=== PATIENT | male | born 1960 | race Two or more races ===

== ENCOUNTER 2025-03-03 02:25 | Emergency (ER) | payer BC, OTHER ==
[~2025-03-03] VITALS: Ht 162.6 cm; Wt 113.7 kg
[2025-03-03 02:35] VITALS: BP 186/104; PULSE 83; RESP 12; TEMP 98.8; O2SAT 95
[2025-03-03 03:51] LABS: Alanine Aminotransferase 28 U/L (7-40); Alkaline Phosphatase 76 U/L (46-116); Anion Gap 12 (5-15); BUN/Creatinine Ratio 12.9 (10.0-20.0); Bilirubin, Total 0.9 mg/dL (0.2-1.0); Blood Urea Nitrogen 12 mg/dL (9-23); Calcium 10.1 mg/dL (8.7-10.4); Carbon Dioxide 26 mmol/L (20-31); Chloride 102 mmol/L (98-107); Lipase 46 U/L (12-53); Potassium 4.5 mmol/L (3.5-5.1); Sodium 140 mmol/L (136-145); Total Protein 7.9 g/dL (5.7-8.2)
[2025-03-03] MEDS ORDERED: LIDOCAINE VISCOUS 2% 15ML UD PO ONE (04:00)
[2025-03-03] MEDS ORDERED: MAALOX PLUS or MAALOX 30 ML PO ONE (04:00)
[2025-03-03 04:14] LABS: Albumin 5.3 g/dL (3.2-4.8); Glucose 152 mg/dL (74-106)
--- NOTE | 2025-03-03 04:31 | DVH ---
Exam: CT CT AB PEL WO CON-NO ORAL OR IV History: Epigastric abdominal pain, nausea, vomiting Comparison Study: None Technique: Multidetector spiral CT of the abdomen was performed from lung bases to pubic symphysis. I maging was performed without IV contrast. Axial, coronal and sagittal multiplanar reformats were obta ined from the axial data set by the technologist. Radiation Dose : 1. Abdomen/Pelvis: CTDIvol 27.32 mGy, DLP 1638.9 mGy*cm. Findings: Evaluation of solid organs is limited due to lack of intravenous contrast use. Lung Bases: Partially calcified pleural-based 8 mm posterior medial left lower lobe pulmonary nodule ( series 2, image 20). Otherwise, no acute or significant lung base finding. Normal heart size. No p leural or pericardial effusion. Liver: The liver is enlarged, measuring 22.4 cm in craniocaudal dimension. No focal lesions. Benign- appearing hypoattenuating cystic lesion within the anterior right hepatic lobe measures 11 mm. Gallbladder and Biliary Tree: Unremarkable Spleen: Unremarkable Pancreas: The pancreas is grossly normal in appearance. Adrenal Glands: Unremarkable Kidneys: Kidneys are grossly normal without calculi or hydronephrosis. Bladder: Grossly unremarkable for degree of distention. Bowel: The stomach is grossly normal in appearance. Colonic diverticula within the proximal sigmoid c olon with mild adjacent inflammatory change and trace free fluid, may represent early sequelae of acu te diverticulitis. Mildly dilated fluid and gas-filled segments of small bowel throughout the abdomen with some scattered air-fluid levels and a maximum luminal diameter of 3.7 cm. No identifiable obstr uctive etiology. The appendix is normal. Lymphadenopathy: No mesenteric, retroperitoneal or periportal lymphadenopathy. Abdominal Wall and Mesentery: Small fat containing umbilical hernia. Vasculature: The visualized abdominal aorta is normal in size and caliber. Evaluation of abdominal a nd pelvic vessels is limited due to lack of intravenous contrast. Pelvic Organs: The prostate is moderately enlarged, measuring 5.2 cm transverse. Musculoskeletal: No aggressive focal bony lesions, acute fractures or dislocation. IMPRESSION: 1. Mildly dilated fluid and gas-filled segments of small bowel measuring up to 3.7 cm in diameter wit h scattered air-fluid levels. No identifiable obstructive etiology. 2. Proximal sigmoid colonic diverticula with mild adjacent inflammatory change and trace free fluid w ithin the left lower quadrant, possibly representing early sequelae of acute diverticulitis. 3. Partially calcified pleural-based posterior left lower lobe pulmonary nodule. 4. Hepatomegaly. 5. Prostatomegaly. Radiation optimization: All CT scans at this facility use at least one of these dose optimization chema hniques: automated exposure control mA and/or kV adjustment per patient size (includes targeted exam s where dose is matched to clinical indication) or iterative reconstruction.
[2025-03-03 04:39] LABS: Hematocrit 51.3 % (41.0-53.0); Mean Corpuscular Hemoglobin 27.9 pg (28.0-32.0)
[2025-03-03] MEDS ORDERED: MORPHINE SULFATE INJ 2 MG/ml SYRG IV ONE (04:45)
[2025-03-03] MEDS ORDERED: ONDANSETRON HCL 4 MG/2 ML VIAL IV ONE (04:45)
--- NOTE | 2025-03-03 04:45 | ED.PDOC ---
History of Present Illness HPI Comments 64 y/o M presents with and daughter for nonradiating, epigastric abdominal pain, nausea, vomiting, and headache. Significant history for arrhythmia and hypertension. Patient reports on sudden onset of pain, while at rest, at around 2000, last night. He states on consuming tuna as his last meal at around 1800, yesterday. Pain is intermittent and 9/10 in severity. He denies any constipation, diarrhea, bloody or bilious vomitus, urinary symptoms, or further associated symptoms. Upon arrival to ED triage, patient was found hypertensive at 186/104. Chief Complaint: Abdominal Pain Time Seen by MD: 02:45 Reviewed Notes: Nurses Notes, Medications, Allergies Allergies: Coded Allergies: NO KNOWN ALLERGIES (Unverified , 03/03/25) Home Meds Active Scripts Famotidine (Pepcid AC) 20 Mg Tab, 20 MG PO BID for 5 Days, #10 TAB Prov:SEBLE RUDD MD 03/03/25 Ondansetron Odt 4MG Tab (ZOFRAN PO) 4 Mg Tb, 4 MG PO TIDPRN PRN for 3 Days, #9 TAB ODT TAB-DISSOLVE IN MOUTH, THEN SWALLOW Prov:SEBLE RUDD MD 03/03/25 Acetaminophen (Acetaminophen Er) 650 Mg Tab, 650 MG PO TIDPRN PRN for 5 Days, #15 TAB Prov:SEBLE RUDD MD 03/03/25 Information Source: Patient Mode of Arrival: Ambulatory Severity: Moderate Timing: Hours Duration: Since onset Prehospital treatment: None Review of Systems: REVIEW OF SYSTEMS: No fever, no chills, or fatigue HEENT: No sore throat, no earache, no congestion, no neck pain. Cardiac: No chest pain. No palpitations. Lungs: No shortness of breath, no cough. GI: Epigastric abdominal pain, nausea, vomiting, no diarrhea, no constipation : No dysuria, frequency, or urgency. No hematuria. Musculoskeletal: No joint pain , no joint swelling, no extremity edema. Skin: No rash, no itching. Neuro: Headache, no dizziness, no weakness Vital Signs Vital Signs Date Time Temp Pulse Resp B/P (MAP) Pulse Ox O2 Delivery O2 Flow Rate FiO2 03/03/25 02:35 98.8 83 12 186/104 (131) 95 98.8 Physical Exam General: Awake, alert and oriented. No acute distress. Skin: Skin in warm, dry and intact. Appropriate color for ethnicity. HEENT: The head is normocephalic and atraumatic. Conjunctivae are clear without exudates or hemorrhage. Sclera is non-icteric. EOM are intact. No signs of nystagmus. Eyelids are normal in appearance without swelling or lesions. Oral mucosa is pink and moist Neck: The neck is supple with normal range of motion. No JVD. Cardiac: Heart rate and rhythm are normal. No murmurs, gallops, or rubs are auscultated. Respiratory: No signs of respiratory distress. Lung sounds are clear in all lobes bilaterally without rales, rhonchi, or wheezes. Abdominal: Epigastric abdominal tenderness. Otherwise, remaining abdomen is soft, non-tender without distention, guarding or rigidity. Bowel sounds are present and normoactive in all four quadrants. Musculoskeletal: No CVA tenderness Extremities: Upper and lower extremities are atraumatic in appearance without deformity or edema. Neurological: The patient is awake, alert and oriented to person, place, and time with normal speech. Speech is clear. There is no facial asymmetry. Psychiatric: Appropriate mood and affect. Good judgement and insight. Past Medical History PAST MEDICAL HISTORY: HTN Past Medical History (Other): Arrhythmia Surgical History: Denies all surgeries Family History Family History: Unknown Social History Smoker: Non-Smoker Alcohol: Denies ETOH Use Drugs: Denies Drug Use Lives In: Home Was a procedure done? Was a procedure done?: No Differential Dx Considerations may include: Differential diagnoses considered include: Abdominal aortic aneurysm, AL, esophageal rupture, intestinal obstruction, mesenteric ischemia, perforated viscus or solid organ rupture, CHF with hepatomegaly, pneumonia, abscess, appendicitis, biliary disease, diverticulitis, gastritis, gastroenteritis, hepatitis, hernia, inflammatory bowel disease, pancreatitis, peptic ulcer disease, urinary tract infection, ureteral colic, constipation, GERD, irritable syndrome, abdominal wall pain, nonspecific abdominal pain, herpes zoster, nephrolithiasis. X-Ray, Labs, Meds, VS Vital Signs Date Time Temp Pulse Resp B/P (MAP) Pulse Ox O2 Delivery O2 Flow Rate FiO2 03/03/25 02:35 98.8 83 12 186/104 (131) 95 98.8 Lab Test 03/03/25 03:50 03/03/25 03:10 Range/Units White Blood Count 11.2 H 4.4-10.8 10^3/uL Red Blood Count 6.34 H 4.5-5.90 10^6/uL Hemoglobin 17.7 H 13.5-17.5 g/dL Hematocrit 51.3 41.0-53.0 % Mean Corpuscular Volume 81.0 80.0-100.0 fL Mean Corpuscular Hemoglobin 27.9 L 28.0-32.0 pg Mean Corpuscular Hemoglobin Concent 34.4 32.0-36.0 g/dL Red Cell Distribution Width 15.0 H 11.8-14.3 % Platelet Count 183 140-450 10^3/uL Mean Platelet Volume 9.0 6.9-10.8 fL Neutrophils (%) (Auto) 81.7 H 37.0-80.0 % Lymphocytes (%) (Auto) 12.9 10.0-50.0 % Monocytes (%) (Auto) 4.5 0.0-12.0 % Eosinophils (%) (Auto) 0.4 0.0-7.0 % Basophils (%) (Auto) 0.5 0.0-2.0 % Neutrophils # (Auto) 9.2 H 1.6-8.6 10 ^3/uL Lymphocytes # (Auto) 1.4 0.4-5.4 10 ^3/uL Monocytes # (Auto) 0.5 0-1.3 10 ^3/uL Eosinophils # (Auto) 0 0-0.8 10 ^3/uL Basophils # (Auto) 0.1 0-0.2 10 ^3/uL Nucleated Red Blood Cells 0.4 % Sodium Level 140 136-145 mmol/L Potassium Level 4.5 3.5-5.1 mmol/L Chloride Level 102 98-107 mmol/L Carbon Dioxide Level 26 20-31 mmol/L Anion Gap 12 5-15 Blood Urea Nitrogen 12 9-23 mg/dL Creatinine 0.93 0.700-1.30 mg/dL Glomerular Filtration Rate Calc 93 >90 mL/min BUN/Creatinine Ratio 12.9 10.0-20.0 Serum Glucose 152 H 74-106 mg/dL Calcium Level 10.1 8.7-10.4 mg/dL Total Bilirubin 0.9 0.2-1.0 mg/dL Aspartate Amino Transferase (AST) 38 13-40 U/L Alanine Aminotransferase (ALT) 28 7-40 U/L Alkaline Phosphatase 76 46-116 U/L Total Protein 7.9 5.7-8.2 g/dL Albumin 5.3 H 3.2-4.8 g/dL Lipase 46 12-53 U/L [place] [id number] Ph: [phone] DIAGNOSTIC IMAGING Diagnostic Imaging Report : [id number] Signed PATIENT: QUE RIVERS ACCT: [id number] UNIT: [id number] : 1960 LOC: ER ROOM / BED: / AGE / SEX: 64 / M ADM STATUS: REG ER SERVICE 7 ORDERING PHYSICIAN: SEBLE RUDD MD PROCEDURE(s): ABPL - CT AB PEL WO CON-NO ORAL OR IV REASON: Epigastric abdominal pain, nausea, vomiting ORDER NUMBER(s): [id number], ACCESSION NUMBER(s): [id number] Exam: CT CT AB PEL WO CON-NO ORAL OR IV History: Epigastric abdominal pain, nausea, vomiting Comparison Study: None Technique: Multidetector spiral CT of the abdomen was performed from lung bases to pubic symphysis. Imaging was performed without IV contrast. Axial, coronal and sagittal multiplanar reformats were obtained from the axial data set by the technologist. Radiation Dose : 1. Abdomen/Pelvis: CTDIvol 27.32 mGy, DLP 1638.9 mGy*cm. Findings: Evaluation of solid organs is limited due to lack of intravenous contrast use. Lung Bases: Partially calcified pleural-based 8 mm posterior medial left lower lobe pulmonary nodule ( series 2, image 20). Otherwise, no acute or significant lung base finding. Normal heart size. No pleural or pericardial effusion. Liver: The liver is enlarged, measuring 22.4 cm in craniocaudal dimension. No focal lesions. Benign-appearing hypoattenuating cystic lesion within the anterior right hepatic lobe measures 11 mm. Gallbladder and Biliary Tree: Unremarkable Spleen: Unremarkable Pancreas: The pancreas is grossly normal in appearance. Adrenal Glands: Unremarkable Kidneys: Kidneys are grossly normal without calculi or hydronephrosis. Bladder: Grossly unremarkable for degree of distention. Bowel: The stomach is grossly normal in appearance. Colonic diverticula within the proximal sigmoid colon with mild adjacent inflammatory change and trace free fluid, may represent early sequelae of acute diverticulitis. Mildly dilated fluid and gas-filled segments of small bowel throughout the abdomen with some scattered air-fluid levels and a maximum luminal diameter of 3.7 cm. No identifiable obstructive etiology. The appendix is normal. Lymphadenopathy: No mesenteric, retroperitoneal or periportal lymphadenopathy. Abdominal Wall and Mesentery: Small fat containing umbilical hernia. Vasculature: The visualized abdominal aorta is normal in size and caliber. Evaluation of abdominal and pelvic vessels is limited due to lack of intravenous contrast. Pelvic Organs: The prostate is moderately enlarged, measuring 5.2 cm transverse. Musculoskeletal: No aggressive focal bony lesions, acute fractures or dislocation. IMPRESSION: 1. Mildly dilated fluid and gas-filled segments of small bowel measuring up to 3.7 cm in diameter with scattered air-fluid levels. No identifiable obstructive etiology. 2. Proximal sigmoid colonic diverticula with mild adjacent inflammatory change and trace free fluid within the left lower quadrant, possibly representing early sequelae of acute diverticulitis. 3. Partially calcified pleural-based posterior left lower lobe pulmonary nodule. 4. Hepatomegaly. 5. Prostatomegaly. Radiation optimization: All CT scans at this facility use at least one of these dose optimization techniques: automated exposure control mA and/or kV adjustment per patient size (includes targeted exams where dose is matched to clinical indication) or iterative reconstruction. ATED BY: GERALD TAVERAS MD DICTATED DATE/TIME: 03/03/25427 SIGNED BY: GERALD ATVERAS MD SIGNED DATE/TIME: 03/03/25427 CC: Time of 1ST Reevaluation: 03:15 Reevaluation 1ST: Unchanged Patient Education/Counseling: Treatment, Need For Follow Up Family Education/Counseling: No Family Present SEPSIS Sepsis Screen Date sepsis recognized/suspect: Mar 03, 2025 Time Sepsis recognized/suspect: 228 Recent Procedure: No On Antibiotic Therapy: No Respiratory Rate >20: No Heart Rate >90: No Temp<36 C (96.8 F) or >38.3 C: No SBP <90 or MAP <65 mmHG: No New Acute Mental Status Change: No Is the patient on CPAP, BIPAP,: No Physician Orders Ct Ab Pel Wo Con-No Oral Or Iv (03/03/25 03:48) Vital Signs Date Time Temp Pulse Resp B/P (MAP) Pulse Ox O2 Delivery O2 Flow Rate FiO2 03/03/25 02:35 98.8 83 12 186/104 (131) 95 98.8 Laboratory Tests Test 03/03/25 03:50 White Blood Count 11.2 10^3/uL (4.4-10.8) H Departure 1 Departure Time of Disposition: 05:25 Impression: Primary Impression: Abdominal pain Additional Impression: Nausea & vomiting Disposition: HOME / SELF CARE / HOMELESS Condition: Stable Additional Instructions: ED DISCHARGE INSTRUCTIONS Instructions: Please read all instructions provided in this packet carefully. Although you have been discharged from the Emergency Department, this does not mean that you have a "clean bill of health". No definitive diagnosis for your symptoms has been made today. It is possible that you are in the process of developing a serious illness. This is why you must return to the ED without fail if any new or worsening symptoms (especially if your symptoms include continued vomiting, chest pain, trouble breathing, worsening abdominal pain, unable to to have a bowel movement, unable to able to pass gas fever headache, confusion, trouble seeing, or trouble walking) It is also very important that you see a primary care doctor within the next 1-3 days to follow up. If you are unable to get an appointment, return to the ED for re-evaluation. Abdominal Pain: Care Instructions Overview Abdominal pain has many possible causes. Some aren't serious and get better on their own in a few days. Others need more testing and treatment. If your pain continues or gets worse, you need to be rechecked and may need more tests to find out what is wrong. You may need surgery to correct the problem. Don't ignore new symptoms, such as fever, nausea and vomiting, urination problems, pain that gets worse, and dizziness. These may be signs of a more serious problem. If you are not getting better, you may need more tests or treatment. The doctor has checked you carefully, but problems can develop later. If you notice any problems or new symptoms, get medical treatment right away. Follow-up care is a shah part of your treatment and safety. Be sure to make and go to all appointments, and call your doctor if you are having problems. It's also a good idea to know your test results and keep a list of the medicines you take. How can you care for yourself at home? Rest until you feel better. To prevent dehydration, drink plenty of fluids. Choose water and other clear liquids until you feel better. If you have kidney, heart, or liver disease and have to limit fluids, talk with your doctor before you increase the amount of fluids you drink. When you feel like eating, start with small amounts. Do not have alcohol, caffeine, or spicy, hot, or high-fat foods for a day or two. Avoid anti-inflammatory medicines such as aspirin, ibuprofen (Advil, Motrin), and naproxen (Aleve). These can cause stomach upset. Talk to your doctor if you take daily aspirin for another health problem. When should you call for help? Call 911 anytime you think you may need emergency care. For example, call if: You passed out (lost consciousness). You pass maroon or very bloody stools. You vomit blood or what looks like coffee grounds. You have severe belly pain. Call your doctor now or seek immediate medical care if: Your pain gets worse, especially if it becomes focused in one area of your belly. You have a new or higher fever. Your stools are black and look like tar, or they have streaks of blood. You have unexpected vaginal bleeding. You have symptoms of a urinary tract infection. These may include: Pain when you urinate. Urinating more often than usual. Blood in your urine. You are dizzy or lightheaded, or you feel like you may faint. Watch closely for changes in your health, and be sure to contact your doctor if: You are not getting better as expected. Credits for Abdominal Pain: Care Instructions Current as of: June 14, 2023 Author: [employer] Clinical Review Board All [employer] education is reviewed by a team that includes physicians, nurses, advanced practitioners, registered dieticians, and other healthcare professionals. e-Prescriptions Famotidine (Pepcid AC) 20 Mg Tab 20 MG PO BID for 5 Days, #10 TAB Prov: SEBLE RUDD MD 03/03/25 Ondansetron Odt 4MG Tab (ZOFRAN PO) 4 Mg Tb 4 MG PO TIDPRN PRN for 3 Days, #9 TAB ODT TAB-DISSOLVE IN MOUTH, THEN SWALLOW Prov: SEBLE RUDD MD 03/03/25 Acetaminophen (Acetaminophen Er) 650 Mg Tab 650 MG PO TIDPRN PRN for 5 Days, #15 TAB Prov: SEBLE RUDD MD 03/03/25 Comments Patient re-evaluated. He states his pain is improved. He would like to go home. Patient offered admission for further observation given abnormal CT scan findings. Advised patient to return to the emergency department with any new or worsening abdominal pain especially if he has continued vomiting. He is advised to follow up with primary care provider within 1-3 days days Extensive evaluation was performed in attempt to identify or rule out: (See differential diagnosis section) The following tests were ordered, and results were reviewed by me and discussed with patient: (See diagnostic results section) The following test were independently interpreted by me: N/A I reviewed and agreed with the following test results read by other providers: CT abdomen and pelvis without contrast I reviewed the following notes from the pt's past medical encounters: N/A Additional information was gathered from interviewing the following independent historians: N/A Discussion of management or test interpretation with external physician/other qualified health career counselor: N/A Decision regarding hospitalization or escalation of hospital level of care: Risks and benefits of admission for further treatment of patient's condition was considered however due to patient's stable condition patient will be discharged to follow up closely or return to care for worsening of condition or inability to follow up. Critical Care Note Critical Care Time?: No Stability Stability form required: No Heart Score Heart Score: Heart Score Response (Comments) Value History N/A 0 EKG N/A 0 Age N/A 0 Risk Factors N/A 0 Troponin N/A 0 Total 0 I personally scribed for SEBLE RUDD MD ([email or web address]) on 03/03/25 at 04:45. Electronically submitted by Dustin Mason ([email or web address]). I personally scribed for SEBLE RUDD MD ([email or web address]) on 03/03/25 at 04:47. Electronically submitted by Dustin Mason ([email or web address]). I personally scribed for SEBLE RUDD MD ([email or web address]) on 03/03/25 at 05:49. Electronically submitted by Dustin Mason ([email or web address]). SEBLE RUDD MD Mar 03, 2025 04:45
[2025-03-03 04:52] LABS: Hemoglobin 17.7 g/dL (13.5-17.5); Mean Corpuscular Volume 81.0 fL (80.0-100.0); Nucleated Red Blood Cells % 0.4 %
[2025-03-03] MEDS ORDERED: ACET650T12 PO (05:27)
[2025-03-03] MEDS ORDERED: FAMO-161 PO (05:27)
[2025-03-03] MEDS ORDERED: ZOFR4T PO (05:27)
== END 2025-03-03 07:52 | disposition home or self-care (01) ==
LOC: ER 02:25
DX: R10.13 Epigastric pain (principal); R11.2 Nausea with vomiting, unspecified; I10 Essential (primary) hypertension; I49.9 Cardiac arrhythmia, unspecified
CPT/HCPCS: 36415; 74176; 80053; 83690; 85025; J2405